=== PATIENT | male | born 1955 | race Caucasian/White ===

== ENCOUNTER 2018-10-26 06:16 | Day surgery (SDC) | payer OTHER ==
[2018-10-26] MEDS: SOD CHLORIDE 0.9% 1,000 ML IV (07:00)
[2018-10-26] MEDS: CEFAZOLIN 2 GM/50 ML (PMX) 50 ML IVPB (07:00)
[2018-10-26] MEDS ORDERED: HYDROmorphONE 1 MG/5 ML IV SYRINGE IV (08:30)
[2018-10-26] MEDS ORDERED: METOCLOPRAMIDE 10 MG INJ IV (08:30)
[2018-10-26] MEDS ORDERED: DIPHENHYDRAMINE 50 MG INJ IV (08:30)
[2018-10-26] MEDS ORDERED: MEPERIDINE 25 MG INJ IV (08:30)
[2018-10-26] MEDS ORDERED: FENTAnyl 50 MCG/ML VIAL IV ×2 (08:30)
[2018-10-26] MEDS ORDERED: ALBUTEROL 0.083% (NEB) 2.5 MG/3 ML AMP HHN (08:30)
[2018-10-26] MEDS ORDERED: DESFLURANE 15 MIN (08:52)
[2018-10-26] MEDS ORDERED: SUCCINYLCHOLINE CHLORIDE 100 MG/5 ML SYG IV (08:52)
[2018-10-26] MEDS ORDERED: LIDOCAINE 2% (SDV) 5 ML INJ (08:52)
[2018-10-26] MEDS ORDERED: FENTAnyl 50 MCG/ML VIAL (08:53)
[2018-10-26] MEDS ORDERED: ROPIVACAINE 0.5 % 30 ML VIAL (08:53)
[2018-10-26] MEDS: POLYMYXIN/BACITRACIN 1L IRRIG (08:59)
[2018-10-26] MEDS ORDERED: NEOSTIGMINE 3 MG/3 ML SYRINGE (09:52)
[2018-10-26] MEDS ORDERED: CEFAZOLIN 1 GM INJ (09:52)
[2018-10-26] MEDS ORDERED: PROPOFOL 20 ML (09:52)
[2018-10-26] MEDS ORDERED: GLYCOPYRROLATE 0.4 MG INJ (09:52)
[2018-10-26] MEDS ORDERED: LIDOCAINE 100 MG SYRINGE (09:52)
[2018-10-26] MEDS: HYDROmorphONE 1 MG/5 ML IV SYRINGE IV ×2 (10:08→10:16)
[2018-10-26] MEDS: ONDANSETRON 4 MG INJ IV (10:08)
[2018-10-26] MEDS: HYDROCODONE/APAP (5/325) TAB PO (10:25)
== END 2018-10-26 11:20 | disposition home or self-care (01) ==
LOC: SDS 06:16
DX: K40.30 Unilateral inguinal hernia, with obstruction, without gangrene, not specified as recurrent (principal); I10 Essential (primary) hypertension; E03.9 Hypothyroidism, unspecified
CPT/HCPCS: 49507